=== PATIENT | female | born 1955 | race Caucasian/White ===

== ENCOUNTER 2022-10-01 12:06 | Day surgery (SDC) | payer MEDICARE, MEDICAID ==
[~2022-10-01] VITALS: Ht 167.6 cm; Wt 81.6 kg
[~2022-10-01 12:06] MED LIST: AMLO10TA PO; ATOR20TA PO; CLA10T PO; FENO48TA10 PO; FOLI0.8T7 PO; FOLI1TAB27 PO; FURO-150 PO; GABA-532 PO; INSU100V36 SQ; LANTUS SUBCUT; LORA10TA7 PO; METH-797 PO; METO-136 PO; MONT-40 PO; OXYC-148 PO; PHO667C PO; PIOG15TA70 PO; [UNRECOGNIZED DRUG - OTHER] PO
[2022-10-01 12:35] VITALS: BP 140/68; PULSE 79; RESP 16; TEMP 97.7; O2SAT 96
[2022-10-01] MEDS ORDERED: normal saline 1000ml 1,000 ML IV PRN (12:35)
[2022-10-01] MEDS ORDERED: CYAN250010 PO (12:40)
[2022-10-01] MEDS ORDERED: LOPE-144 PO (12:40)
[2022-10-01] MEDS ORDERED: DIPH-629 PO (12:40)
[2022-10-01] MEDS ORDERED: PRAM0.258 PO (12:40)
[2022-10-01] MEDS ORDERED: APIX5TAB3 PO (12:40)
[2022-10-01] MEDS ORDERED: MV,I66.7 PO (12:40)
[2022-10-01] MEDS ORDERED: fentaNYL/PF 50MCG/1 ML 2ML syringe ONE (13:22)
[2022-10-01] MEDS ORDERED: heparin 1,000unit/ml 10ml vial 10 ML ONE (13:22)
[2022-10-01] MEDS ORDERED: midazolam 1 mg/ML 2ml injection ONE (13:22)
[2022-10-01 13:25] LABS: BASOPHILS % (AUTO) 0.8 % (0-1); EOSINOPHILS # (AUTO) 0.4 X10'3 (0-0.9); EOSINOPHILS % (AUTO) 9.2 % (0-6); HEMATOCRIT 34.4 % (35.0-45.0); HEMOGLOBIN 11.3 g/dl (12.0-16.0); LYMPHOCYTES # (AUTO) 0.8 X10'3 (1.1-4.8); LYMPHOCYTES % (AUTO) 16.5 % (21-51); MEAN CORPUSCULAR HGB CONC 32.9 g/dL (33.0-36.5); MEAN CORPUSCULAR VOLUME 88.1 FL (78-98); MEAN PLATELET VOLUME 8.6 FL (7.4-10.4); MONOCYTES # (AUTO) 0.4 X10'3 (0-0.9); MONOCYTES % (AUTO) 8.7 % (2-12); NEUTROPHILS # (AUTO) 3.1 X10'3 (1.8-7.7); NEUTROPHILS % (AUTO) 64.8 % (42-75); PLATELET COUNT 121 X10'3 (140-440); RED CELL DISTRIBUTION WIDTH 17.1 % (11.5-14.5); WHITE BLOOD COUNT 4.8 X10'3 (4.5-11.0)
[2022-10-01] MEDS ORDERED: ceFAZolin/D5W- 1GM premix 50 ML IV ONE (13:50)
[2022-10-01 14:55] VITALS: BP 121/61; PULSE 69; RESP 16; O2SAT 95
[2022-10-01 15:10] VITALS: BP 115/59; PULSE 70; RESP 15; O2SAT 95
[2022-10-01 15:25] VITALS: BP 117/53; PULSE 73; RESP 17; O2SAT 96
[2022-10-01 15:40] VITALS: BP 143/74; PULSE 81; RESP 16; O2SAT 97
[2022-10-01 16:10] VITALS: BP 118/75; PULSE 73; RESP 16; O2SAT 100
== END 2022-10-01 16:30 | disposition home or self-care (01) ==
LOC: SSTAY O 12:06
PROVIDERS: ATTEND Radiology Vascular & Interventional Radiology
DX: T85.71XA Infection and inflammatory reaction due to peritoneal dialysis catheter, initial encounter (principal); E11.22 Type 2 diabetes mellitus with diabetic chronic kidney disease; N18.6 End stage renal disease; E66.9 Obesity, unspecified; Z68.29 Body mass index [BMI] 29.0-29.9, adult; F17.210 Nicotine dependence, cigarettes, uncomplicated; Z86.73 Personal history of transient ischemic attack (TIA), and cerebral infarction without residual deficits; Z79.4 Long term (current) use of insulin; Z79.899 Other long term (current) drug therapy; Z79.01 Long term (current) use of anticoagulants; Z88.1 Allergy status to other antibiotic agents; Z88.8 Allergy status to other drugs, medicaments and biological substances; Y83.8 Other surgical procedures as the cause of abnormal reaction of the patient, or of later complication, without mention of misadventure at the time of the procedure; Y92.89 Other specified places as the place of occurrence of the external cause
CPT/HCPCS: 36415; 36558; 76937; 77001; 82948; 85025; 85610; 99152; C1750; C1769; J1644; J2250; J3010; J7030; 99153; A4620; A9270; C1894

== ENCOUNTER 2023-01-07 15:54 | Outpatient (CLI) | payer BC, MEDICAID ==
[~2023-01-07] VITALS: Ht 182.9 cm; Wt 77.6 kg
[~2023-01-07 15:54] MED LIST changes: -AMLO10TA PO; +APIX5TAB3 PO; -CLA10T PO; +CYAN250010 PO; +DIPH-629 PO; -FENO48TA10 PO; -FOLI0.8T7 PO; -GABA-532 PO; +LOPE-144 PO; -METH-797 PO; +MV,I66.7 PO; -OXYC-148 PO; +PRAM0.258 PO; -[UNRECOGNIZED DRUG - OTHER] PO
[2023-01-07 16:15] LABS: TOTAL HEMOGLOBIN 11.9 G/dl (12.0-16.0)
[2023-01-07] MEDS ORDERED: albuterol 2.5 MG/3 ML nebule NEB ONE (16:35)
[2023-01-07 16:51] VITALS: PULSE 82; RESP 14; O2SAT 97
== END 2023-01-07 23:59 | disposition home or self-care (01) ==
LOC: RT 15:54
PROVIDERS: ATTEND Internal Medicine Pulmonary Disease
DX: J44.9 Chronic obstructive pulmonary disease, unspecified (principal); R94.2 Abnormal results of pulmonary function studies
CPT/HCPCS: 85018; 94060; 94727; 94729; 94760

== ENCOUNTER 2023-12-23 11:05 | Day surgery (SDC) | payer BC, MEDICAID ==
[~2023-12-23] VITALS: Ht 167.6 cm; Wt 82.1 kg
[2023-12-23] MEDS ORDERED: ACET-1008 PO (12:02)
[2023-12-23] MEDS ORDERED: ASPI81TA52 PO (12:02)
[2023-12-23] MEDS ORDERED: INSU100C10 SQ (12:02)
[2023-12-23] MEDS ORDERED: LANTUS SQ (12:02)
[2023-12-23] MEDS ORDERED: FURO-149 PO (12:02)
[2023-12-23] MEDS ORDERED: DOCU-148 PO (12:02)
[2023-12-23 12:41] LABS: PROTHROMBIN TIME 10.5 SECONDS (9.0-12.0)
[2023-12-23 12:42] LABS: BASOPHILS % (AUTO) 0.8 % (0-1); EOSINOPHILS # (AUTO) 0.1 X10'3 (0-0.9); EOSINOPHILS % (AUTO) 2.7 % (0-6); LYMPHOCYTES # (AUTO) 0.8 X10'3 (1.1-4.8); LYMPHOCYTES % (AUTO) 15.5 % (21-51); MEAN CORPUSCULAR HEMOGLOBIN 30.7 PG (27.0-31.0); MEAN CORPUSCULAR HGB CONC 33.2 g/dL (33.0-36.5); MEAN CORPUSCULAR VOLUME 92.3 FL (78-98); MEAN PLATELET VOLUME 8.3 FL (7.4-10.4); MONOCYTES # (AUTO) 0.4 X10'3 (0-0.9); MONOCYTES % (AUTO) 8.1 % (2-12); NEUTROPHILS % (AUTO) 72.9 % (42-75); PLATELET COUNT 156 X10'3 (140-440); RED BLOOD COUNT 4.23 X10'6 (4.20-5.60); RED CELL DISTRIBUTION WIDTH 15.6 % (11.5-14.5); WHITE BLOOD COUNT 5.5 X10'3 (4.5-11.0)
[2023-12-23] MEDS: normal saline 1000ml 1,000 ML IV SCH (13:40)
[2023-12-23 14:12] VITALS: RESP 15; O2SAT 97
[2023-12-23] MEDS ORDERED: LIDOcaine 1% 30ml preserv. free vial ONE (14:47)
[2023-12-23] MEDS ORDERED: ondansetron/PF 4mg/2ml inj ONE (14:47)
[2023-12-23] MEDS ORDERED: midazolam 1 mg/ML 2ml injection ONE ×2 (14:47→15:31)
[2023-12-23] MEDS ORDERED: fentaNYL/PF 50MCG/1 ML 2ML syringe ONE ×2 (14:47→15:31)
[2023-12-23] MEDS ORDERED: heparin 1,000unit/ml 10ml vial 10 ML ONE (15:04)
[2023-12-23 16:17] VITALS: BP 137/69; PULSE 83; RESP 15; O2SAT 96
[2023-12-23 16:47] VITALS: BP 158/79; PULSE 86; RESP 14; O2SAT 95
[2023-12-23 17:02] VITALS: BP 158/69; PULSE 85; RESP 15; O2SAT 95
[2023-12-23 17:17] VITALS: BP 140/60; PULSE 76; RESP 14; O2SAT 96
== END 2023-12-23 17:40 | disposition home or self-care (01) ==
LOC: SSTAY O 11:05
PROVIDERS: ATTEND Internal Medicine Critical Care Medicine
DX: Z45.2 Encounter for adjustment and management of vascular access device (principal); R20.0 Anesthesia of skin; M79.641 Pain in right hand; I13.2 Hypertensive heart and chronic kidney disease with heart failure and with stage 5 chronic kidney disease, or end stage renal disease; E11.22 Type 2 diabetes mellitus with diabetic chronic kidney disease; N18.6 End stage renal disease; I50.32 Chronic diastolic (congestive) heart failure; E11.42 Type 2 diabetes mellitus with diabetic polyneuropathy; I48.19 Other persistent atrial fibrillation; E78.5 Hyperlipidemia, unspecified; Z86.73 Personal history of transient ischemic attack (TIA), and cerebral infarction without residual deficits; Z79.01 Long term (current) use of anticoagulants; Z79.4 Long term (current) use of insulin; Z79.899 Other long term (current) drug therapy; Z91.018 Allergy to other foods; Z88.8 Allergy status to other drugs, medicaments and biological substances
CPT/HCPCS: 36415; 36558; 36589; 76937; 77001; 82948; 85025; 85610; A6222; C1750; J1644; J2250; J3010; J3490; J7030; 99152; 99153; A6258; A9270; C1769; C1894; J2405